=== PATIENT | male | born 1970 | race Caucasian/White ===

== ENCOUNTER → 2017-08-13 | Outpatient (CLI) | payer OTHER ==
--- NOTE | 2017-08-13 09:28 | REP ---
Right rib series and PA chest: There are no comparisons. Right ribs four views: There is no rib fracture or other rib abnormality. There is a focal density in the humeral head, likely a an enchondroma or bone infarct. PA chest: There are no comparisons. There is no pneumothorax, hemothorax or pulmonary contusion. The jose g, mediastinum, and bony thorax are unremarkable. Impression: Negative PA chest. Signed by Jose Urbina MD 08/13/2017 09:19 A
== END ==
LOC: M WUC 08:45
PROVIDERS: ATTEND Physician Assistant
DX: S20.211A Contusion of right front wall of thorax, initial encounter (principal); X58.XXXA Exposure to other specified factors, initial encounter; Y92.89 Other specified places as the place of occurrence of the external cause; Y93.89 Activity, other specified; Y99.8 Other external cause status

== ENCOUNTER 2019-05-23 08:16 | Emergency (ER) | payer OTHER ==
[~2019-05-23] VITALS: Ht 182.9 cm; Wt 86.4 kg
[2019-05-23 08:16] VITALS: BP 135/108
[2019-05-23] MEDS ORDERED: ACETAMINOPHEN TAB 650MG DOSE (2X325MG) PO ONE (08:30)
--- NOTE | 2019-05-23 08:49 | REP ---
Left ankle: Four views. History: Ankle swelling. Findings: Four views of the left ankle demonstrate an intact ankle mortise. There is mild lateral malleolar swelling and mild anterior swelling. A small plantar calcaneal spur is seen on the lateral film. No fractures seen. Impression: Anterolateral swelling. Heel spur. No fracture noted. Electronically Signed by Michael Roberts MD 05/23/2019 08:40 A
--- NOTE | 2019-05-23 08:57 | REP ---
Left foot series: Four views. History: Trauma. Findings: Four views of the left foot demonstrate old healed post-traumatic deformity of the distal diaphysis of the second metatarsal. No acute fracture or subluxation is seen. There is soft tissue swelling about the lateral malleolus. Impression: Old healed distal second metatarsal fracture. Lateral ankle swelling. No acute fracture seen. Electronically Signed by Michael Roberts MD 05/23/2019 08:49 A
== END 2019-05-23 09:24 | disposition home or self-care (01) ==
LOC: M ED 08:16
DX: S93.402A Sprain of unspecified ligament of left ankle, initial encounter (principal); X50.1XXA Overexertion from prolonged static or awkward postures, initial encounter; Y92.9 Unspecified place or not applicable; Y93.9 Activity, unspecified; Y99.9 Unspecified external cause status; M77.32 Calcaneal spur, left foot

== ENCOUNTER 2020-03-08 10:46 | Emergency (ER) | payer OTHER, SELFPAY ==
[~2020-03-08] VITALS: Ht 182.9 cm; Wt 89.2 kg
[2020-03-08 10:46] VITALS: BP 137/98
[2020-03-08] MEDS ORDERED: KEFL500C17 PO (11:08)
[2020-03-08] MEDS ORDERED: BOOSTRIX/ADACEL VACCINE (DIPHTH/PERTUSS/ACELL/TETANUS) 0.5ML SYR IM ONE (11:15)
[2020-03-08] MEDS ORDERED: DERMABOND TOPICAL SKIN ADHESIVE TOP ONE (11:15)
[2020-03-08] MEDS ORDERED: CEPHALEXIN 500 MG CAP PO ONE (11:15)
== END 2020-03-08 11:40 | disposition home or self-care (01) ==
LOC: M ED 10:46
DX: S61.211A Laceration without foreign body of left index finger without damage to nail, initial encounter (principal); W29.3XXA Contact with powered garden and outdoor hand tools and machinery, initial encounter; Y92.096 Garden or yard of other non-institutional residence as the place of occurrence of the external cause

== ENCOUNTER 2021-10-02 09:29 | Emergency (ER) | payer SELFPAY ==
[~2021-10-02] VITALS: Ht 182.9 cm; Wt 89.9 kg
[~2021-10-02 09:29] MED LIST: KEFL500C17 PO
[2021-10-02 09:30] VITALS: BP 124/78
--- OUTSIDE RECORDS SUMMARY | 2021-10-02 09:36 | CCD ---
Author Author [facility] Organization [facility] Address Unknown Phone Unavailable Support Name Relationship Address Phone COMFORT INN Next Of Kin [address] [place] [address] ELIZAB[place] [address] Unavailable UE Next Of Kin Unknown Unavailable BRYON BERRY Next Of Kin [address] [place] [address] Re-disclosure Warning The records that you are about to access may contain information from federally-assisted alcohol or drug abuse programs. If such information is present, then the following federally mandated warning applies: This information has been disclosed to you from records protected by federal confidentiality rules (42 CFR part 2). The federal rules prohibit you from making any further disclosure of this information unless further disclosure is expressly permitted by the written consent of the person to whom it pertains or as otherwise permitted by 42 CFR part 2. A general authorization for the release of medical or other information is NOT sufficient for this purpose. The Federal rules restrict any use of the information to criminally investigate or prosecute any alcohol or drug abuse patient.The records that you are about to access may contain highly sensitive health information, the redisclosure of which is protected by Article 27-F of the [facility] Public Health law. If you continue you may have access to information: Regarding HIV / AIDS; Provided by facilities licensed or operated by the [facility] Office of Mental Health; or Provided by the [facility] Office for People With Developmental Disabilities. If such information is present, then the following [facility] mandated warning applies: This information has been disclosed to you from confidential records which are protected by state law. State law prohibits you from making any further disclosure of this information without the specific written consent of the person to whom it pertains, or as otherwise permitted by law. Any unauthorized further disclosure in violation of state law may result in a fine or [place] [facility] sentence or both. A general authorization for the release of medical or other information is NOT sufficient authorization for further disc losure. Family History Family Member Name Family Member Gender Family Member Status Date o f Status Description Data Source(s) Unknown Unknown Problem [facility] ([facility]) Medications No Information Insurance Providers Payer name Policy type / Coverage type Policy ID Covered democrat ID Covered democrat's relationship to hoover Policy Hoover Plan Information SELF PAY ONLY [id number] SP [id number] [facility] COMMUNITY PLAN [facility] [id number] SP [id number] [facility] INSURANCE [facility] [id number] SP [id number] COMFORT INN [id number] SP [id number] COM[employer] INN [id number] SP [id number] [facility] Maintenance Organization ([facility] [id number] Self [id number] [facility] (O) [id number] Self [id number] [facility] (O) [id number] Self [id number] [facility] (O) [id number] Self [id number] [facility] (O) [id number] [facility]) O [id number] S [id number] SELF PAY UNAVAILABLE SP UNAVAILA BLE Problems, Conditions, and Diagnoses No Information Surgeries/Procedures No Information Results No Information Social History No Information
--- OUTSIDE RECORDS SUMMARY | 2021-10-02 14:24 | CCD ---
Author Author [facility] Organization [facility] Address Unknown Phone Unavailable Support Name Relationship Address Phone COMF[employer] INN Next Of Kin [address] [place] [address] ELIZ[place] [address] Unavailable UE Next Of Kin Unknown Unavailable BRYON BERRY Next Of Kin [address] [place] [address] Re-disclosure Warning The records that you are [...] is protected by Article 27-F of the [facility] Public Health law. If you continue you may have access to information: Regarding HIV / AIDS; Provided by facilities licensed or operated by the [facility] Office of Mental Health; or Provided by the [facility] Office for People With Developmental Disabilities. If such information is present, then the following [facility] mandated warning applies: This information has been [...] law may result in a fine or group home sentence or both. A general authorization for [...] type / Coverage type Policy ID Covered alliance party ID Covered alliance party's relationship to hoover Policy Hoover Plan Information SELF PAY ONLY [id number] SP [id number] [facility] COMMUNITY PLAN [facility] [id number] SP [id number] [facility] INSURANCE [facility] [id number] SP [id number] COMFORT INN [id number] SP [id number] [employer] INN [id number] SP [id number] [facility] Maintenance Organization ([facility]) [id number] Self [id number] [facility] (O) [id number] Self [id number] [facility] (O) [id number] Self [id number] [facility] (O) [id number] Self [id number] [facility] Maintenance [facility] (O) [id number] [facility] O [id number] S [id number] SELF PAY UNAVAILABLE SP UNAVAILA BLE Problems, Conditions, and Diagnoses No Information Surgeries/Procedures No Information Results No Information Social History No Information
== END 2021-10-02 15:40 | disposition home or self-care (01) ==
LOC: M ED 09:29
DX: B34.8 Other viral infections of unspecified site (principal)

== ENCOUNTER 2022-12-20 16:06 | Emergency (ER) | payer SELFPAY ==
[~2022-12-20] VITALS: Ht 182.9 cm; Wt 77.3 kg
[2022-12-20 16:07] VITALS: BP 135/98
[2022-12-20] MEDS ORDERED: IBUP80TA PO (16:13)
[2022-12-20] MEDS ORDERED: ACET-897 PO (16:13)
[2022-12-20] MEDS ORDERED: IBUP-1022 PO (17:36)
== END 2022-12-20 17:43 | disposition home or self-care (01) ==
LOC: M ED 16:06
DX: S93.402A Sprain of unspecified ligament of left ankle, initial encounter (principal); W00.0XXA Fall on same level due to ice and snow, initial encounter; Y92.410 Unspecified street and highway as the place of occurrence of the external cause; Y93.K1 Activity, walking an animal

== ENCOUNTER → 2023-09-20 | Outpatient (CLI) | payer OTHER ==
[~2023-09-20] MED LIST changes: +ACET-897 PO; +IBUP-1022 PO; +IBUP80TA PO
== END ==
LOC: M WUC 11:00
PROVIDERS: ATTEND Nurse Practitioner Family
DX: R07.82 Intercostal pain (principal)

== ENCOUNTER → 2023-10-14 | Outpatient (REF) | payer OTHER | LOC: M LAB REF 16:17 | PROVIDERS: ATTEND Student in an Organized Health Care Education/Training Program | DX: R30.0 Dysuria (principal) ==

== ENCOUNTER → 2024-03-02 | Outpatient (CLI) | payer OTHER | LOC: M WUC 15:27 | PROVIDERS: ATTEND Nurse Practitioner Family | DX: M25.532 Pain in left wrist (principal) ==

== ENCOUNTER 2024-03-11 13:14 | Emergency (ER) | payer OTHER ==
[~2024-03-11] VITALS: Ht 182.9 cm; Wt 75.5 kg
[2024-03-11 13:14] VITALS: BP 138/79; TEMP 98.5; O2SAT 99
[2024-03-11] MEDS ORDERED: Muscle Relaxer (13:20)
[2024-03-11] MEDS ORDERED: HYDR-3713 PO (15:10)
[2024-03-11] MEDS ORDERED: AMOX875T2 PO (15:10)
== END 2024-03-11 15:57 | disposition home or self-care (01) ==
LOC: M ED 13:14
DX: S02.2XXA Fracture of nasal bones, initial encounter for closed fracture (principal); S02.401A Maxillary fracture, unspecified side, initial encounter for closed fracture; S20.219A Contusion of unspecified front wall of thorax, initial encounter; Y92.9 Unspecified place or not applicable; Y93.9 Activity, unspecified; Y99.9 Unspecified external cause status; Z79.2 Long term (current) use of antibiotics; Z79.1 Long term (current) use of non-steroidal anti-inflammatories (NSAID)

== ENCOUNTER 2025-09-18 06:12 | Emergency (ER) | payer MEDICAID, OTHER ==
[~2025-09-18] VITALS: Ht 182.9 cm; Wt 75.0 kg
[~2025-09-18 06:12] MED LIST changes: +AMOX875T2 PO; +HYDR-3713 PO; -IBUP-1022 PO; +IBUP600T42 PO; +Muscle Relaxer
[2025-09-18 06:57] LABS: BASO # 0.1 10^3/uL (0.0-0.2); BASO % 0.9 % (0.0-1.0); EOS # 0.2 10^3/uL (0.0-0.5); EOS % 2.7 % (0.0-3.0); LYMPH # 2.0 10^3/uL (1.5-5.0); LYMPH % 24.4 % (24.0-44.0); MONO # 0.8 10^3/uL (0.0-0.8); MONO % 9.4 % (2.0-8.0); NEUTROPHILS # 5.1 10^3/uL (1.5-8.5); NEUTROPHILS % 62.2 % (36.0-66.0); PLATELET COUNT, AUTOMATED 260 10^3/uL (150-450)
[2025-09-18 07:20] LABS: ALT/SGPT 21 U/L (7.0-40); AST/SGOT 24 U/L (<34); CALCIUM LEVEL 9.0 MG/DL (8.5-10.1); CARBON DIOXIDE LEVEL 22 MMOL/L (20-31); CHLORIDE LEVEL 107 MMOL/L (98-107); CREATININE FOR GFR 0.88 MG/DL (0.70-1.30); GLOMERULAR FILTRATION RATE > 90.0 (>56); POTASSIUM SERUM 3.6 MMOL/L (3.5-5.1); SODIUM LEVEL 144 MMOL/L (136-145)
[2025-09-18 07:42] LABS: ETHYL ALCOHOL (ETHANOL) 0.029 % (0.000-0.010)
[2025-09-18] MEDS: KETOROLAC 30 MG/ML 1 ML VIAL IV ONE (09:37)
[2025-09-18] MEDS ORDERED: HYDR-3713 PO (13:11)
[2025-09-18 13:15] VITALS: BP 139/81; TEMP 98.2; O2SAT 100
== END 2025-09-18 13:30 | disposition home or self-care (01) ==
LOC: EDBD 06:12 → M ED 06:12
DX: S42.142A Displaced fracture of glenoid cavity of scapula, left shoulder, initial encounter for closed fracture (principal); Y92.019 Unspecified place in single-family (private) house as the place of occurrence of the external cause; Y93.9 Activity, unspecified; Y99.9 Unspecified external cause status; W01.0XXA Fall on same level from slipping, tripping and stumbling without subsequent striking against object, initial encounter; F17.210 Nicotine dependence, cigarettes, uncomplicated; F10.10 Alcohol abuse, uncomplicated; Z79.1 Long term (current) use of non-steroidal anti-inflammatories (NSAID)
CPT/HCPCS: 73030; 73200; 80047; 80053; 82077; 85025; 93005; 96374; 99284; J1885

== ENCOUNTER → 2025-10-06 | Outpatient (CLI) | payer MEDICAID | LOC: M SOG 13:29 | PROVIDERS: ATTEND Orthopaedic Surgery | DX: S42.142A Displaced fracture of glenoid cavity of scapula, left shoulder, initial encounter for closed fracture (principal); X58.XXXA Exposure to other specified factors, initial encounter; Y92.9 Unspecified place or not applicable; Y93.9 Activity, unspecified; Y99.9 Unspecified external cause status ==

== ENCOUNTER → 2025-10-08 | Outpatient (CLI) | payer MEDICAID ==
[~2025-10-08] MED LIST changes: +CELE100C PO; +CELE1CAP4 PO; +PERC5TAB12 PO
[2025-10-08 14:27] LABS: BASO # 0.1 10^3/uL (0.0-0.2); BASO % 1.0 % (0.0-1.0); EOS # 0.7 10^3/uL (0.0-0.5); EOS % 7.5 % (0.0-3.0); LYMPH # 2.1 10^3/uL (1.5-5.0); LYMPH % 24.1 % (24.0-44.0); MONO # 0.6 10^3/uL (0.0-0.8); MONO % 7.1 % (2.0-8.0); NEUTROPHILS # 5.3 10^3/uL (1.5-8.5); NEUTROPHILS % 59.8 % (36.0-66.0); PLATELET COUNT, AUTOMATED 349 10^3/uL (150-450)
[2025-10-08 14:57] LABS: ALT/SGPT 21 U/L (7.0-40); AST/SGOT 19 U/L (<34); CALCIUM LEVEL 8.5 MG/DL (8.5-10.1); CARBON DIOXIDE LEVEL 26 MMOL/L (20-31); CHLORIDE LEVEL 109 MMOL/L (98-107); CREATININE FOR GFR 0.67 MG/DL (0.70-1.30); GLOMERULAR FILTRATION RATE > 90.0 (>56); POTASSIUM SERUM 4.4 MMOL/L (3.5-5.1); SODIUM LEVEL 146 MMOL/L (136-145)
[2025-10-08 15:06] LABS: INR 0.87
== END ==
LOC: M LAB 13:58
PROVIDERS: ATTEND Orthopaedic Surgery
DX: S42.142A Displaced fracture of glenoid cavity of scapula, left shoulder, initial encounter for closed fracture (principal); W18.30XA Fall on same level, unspecified, initial encounter; Y92.009 Unspecified place in unspecified non-institutional (private) residence as the place of occurrence of the external cause

== ENCOUNTER 2025-10-13 09:41 | Observation (INO) | payer MEDICAID, OTHER ==
[~2025-10-13] VITALS: Ht 182.9 cm; Wt 76.4 kg
[~2025-10-13 09:41] MED LIST changes: +ACETAMINOPHEN 1000MG/100ML IV BAG As Ordered ONE; -CELE100C PO; -CELE1CAP4 PO; +KETOROLAC 30 MG/ML 1 ML VIAL As Ordered ONE; +LIDOCAINE 2% 100 MG/5 ML SDV (FOR ANES.) As Ordered ONE; +LIDOCAINE 5% OINT 30 GM TUBE As Ordered ONE; +MIDAZOLAM INJ 2 MG/2 ML VIAL As Ordered ONE; +ONDANSETRON 4MG/2ML VIAL As Ordered ONE; -PERC5TAB12 PO; +ROCURONIUM BROMIDE 50MG/5ML VIAL As Ordered ONE; +SUGAMMADEX SODIUM 200 MG/2 ML VIAL As Ordered ONE; +dexAMETHasone 4 MG/ML 1 ML VIAL As Ordered ONE
[2025-10-13] MEDS ORDERED: LR 1,000 ML IV SCH (10:05)
[2025-10-13] MEDS: BUPivacaine LIPOSOME/PF 133 MG/10 ML VIAL PN ONE (12:14)
[2025-10-13] MEDS: LIDOCAINE 1% SDV 5 ML VIAL PN ONE (12:14)
[2025-10-13] MEDS: MIDAZOLAM INJ 2 MG/2 ML VIAL IV PRN (12:14)
[2025-10-13] MEDS: dexAMETHasone 10 MG/1 ML VIAL PRES.FREE PN ONE (12:28)
[2025-10-13] MEDS: ROPIvacaine 0.5% 30ML VIAL PN ONE (12:29)
[2025-10-13] MEDS ORDERED: LACRILUBE (AKWA TEARS) OPHTH OINT 3.5 GM As Ordered ONE (13:00)
[2025-10-13] MEDS ORDERED: PHENYLephrine 500MCG 5ML (100MCG/ML) SYRINGE As Ordered ONE (13:19)
[2025-10-13] MEDS: TRANEXAMIC ACID 100 MG/ML 10ML VIAL As Ordered ONE (13:24)
[2025-10-13] MEDS: EPINEPHrine 1 MG/ML INJ 30 ML MD-VIAL As Ordered ONE (15:06)
[2025-10-13] MEDS ORDERED: HYDROmorphone HCL 2 MG/ML 1 ML VIAL As Ordered ONE (15:37)
[2025-10-13] MEDS: LIDOCAINE 1% MDV 20 ML VIAL As Ordered ONE (16:50)
[2025-10-13] MEDS ORDERED: ONDANSETRON 4MG/2ML VIAL IV PRN ×3 (17:00→17:35)
[2025-10-13] MEDS ORDERED: ACETAMINOPHEN 325 MG TAB PO PRN (17:35)
[2025-10-13] MEDS ORDERED: PERCOCET 5MG/325MG TAB PO PRN (17:40)
[2025-10-13] MEDS ORDERED: PERC5TAB12 PO (17:58)
[2025-10-13] MEDS ORDERED: CELE100C PO (17:58)
[2025-10-13] MEDS ORDERED: CELE1CAP4 PO (17:58)
[2025-10-13] MEDS: HYDROMORPHONE HCL 0.5 MG/0.5 ML SYRINGE IV PRN (18:56)
[2025-10-13 19:28] VITALS: BP 128/77; TEMP 97.8; O2SAT 98
[2025-10-13] MEDS ORDERED: ceFAZolin SODIUM 2 GM in DEXTROSE 5% (D5W) ADV/MINI-BAG 50 ML IV SCH (21:00)
== END 2025-10-13 21:44 | disposition home or self-care (01) ==
LOC: M SDC 09:41 → M RR INP 09:42
PROVIDERS: ADMIT Orthopaedic Surgery; ATTEND Orthopaedic Surgery
DX: S42.142A Displaced fracture of glenoid cavity of scapula, left shoulder, initial encounter for closed fracture (principal); S43.432A Superior glenoid labrum lesion of left shoulder, initial encounter; X58.XXXA Exposure to other specified factors, initial encounter; Y92.9 Unspecified place or not applicable; Y93.9 Activity, unspecified; Y99.9 Unspecified external cause status
CPT/HCPCS: 29806; 64466; C1713; J0131; J0165; J0665; J0666; J0688; J1100; J1171; J1885; J2250; J2371; J2405; J3010

== ENCOUNTER → 2025-10-27 | Outpatient (CLI) | payer OTHER ==
[~2025-10-27] MED LIST changes: -ACETAMINOPHEN 1000MG/100ML IV BAG As Ordered ONE; +CELE100C PO; +CELE1CAP4 PO; -KETOROLAC 30 MG/ML 1 ML VIAL As Ordered ONE; -LIDOCAINE 2% 100 MG/5 ML SDV (FOR ANES.) As Ordered ONE; -LIDOCAINE 5% OINT 30 GM TUBE As Ordered ONE; -MIDAZOLAM INJ 2 MG/2 ML VIAL As Ordered ONE; -ONDANSETRON 4MG/2ML VIAL As Ordered ONE; +PERC5TAB12 PO; -ROCURONIUM BROMIDE 50MG/5ML VIAL As Ordered ONE; -SUGAMMADEX SODIUM 200 MG/2 ML VIAL As Ordered ONE; -dexAMETHasone 4 MG/ML 1 ML VIAL As Ordered ONE
== END ==
LOC: M SOG 07:39
PROVIDERS: ATTEND Orthopaedic Surgery
DX: S42.142A Displaced fracture of glenoid cavity of scapula, left shoulder, initial encounter for closed fracture (principal); Z47.89 Encounter for other orthopedic aftercare

== ENCOUNTER → 2025-10-28 | Outpatient (CLI) | payer OTHER | LOC: M SOG 07:57 | PROVIDERS: ATTEND Orthopaedic Surgery | DX: Z47.89 Encounter for other orthopedic aftercare (principal); S42.142A Displaced fracture of glenoid cavity of scapula, left shoulder, initial encounter for closed fracture; Y93.9 Activity, unspecified; Y92.9 Unspecified place or not applicable ==

== ENCOUNTER → 2025-11-10 | Outpatient (CLI) | payer OTHER | LOC: M SOG 08:57 | PROVIDERS: ATTEND Orthopaedic Surgery | DX: S42.142D Displaced fracture of glenoid cavity of scapula, left shoulder, subsequent encounter for fracture with routine healing (principal); Y93.9 Activity, unspecified; Y92.9 Unspecified place or not applicable ==